=== PATIENT | male | born 1935 | race Caucasian/White ===

== ENCOUNTER 2021-01-19 10:14 | Day surgery (SDC) | payer OTHER ==
[~2021-01-19] VITALS: Ht 170.2 cm; Wt 85.5 kg
[~2021-01-19 10:14] MED LIST: ASPI81CH PO; ASPI81EC PO; FISH OIL 1,2001 EAC7 PO; HYDACE5 PO; LEVSOD112 PO; LEVSOD75 PO; LOSA50 PO; NIAC500 PO; Ocuvite Preser1 EACH PO; QUIN10 PO; Ranitidine HCl150 M1 PO
--- NOTE | 2021-01-19 11:33 | NUR ---
01/19/21 1133 LORETA MORA PT UPDATED THAT PREVIOUS CASE IS RUNNING LONG. PT COMFORTABLE AND DENIES NEEDING ANYTHING AT THIS TIME.
== END 2021-01-19 13:00 | disposition home or self-care (01) ==
LOC: ORSCSDS 10:14
PROVIDERS: Student in an Organized Health Care Education/Training Program
PROC: 0DBK8ZX Excision of Ascending Colon, Via Natural or Artificial Opening Endoscopic, Diagnostic (ICD-10-PCS; principal; 2021-01-19 11:30)
PROC: 0DBN8ZX Excision of Sigmoid Colon, Via Natural or Artificial Opening Endoscopic, Diagnostic (ICD-10-PCS; principal; 2021-01-19 11:30)
DX: Z12.11 Encounter for screening for malignant neoplasm of colon (principal); D12.2 Benign neoplasm of ascending colon; D12.5 Benign neoplasm of sigmoid colon; K57.30 Diverticulosis of large intestine without perforation or abscess without bleeding; K64.8 Other hemorrhoids; Z86.010 Personal history of colon polyps; I10 Essential (primary) hypertension; E03.9 Hypothyroidism, unspecified; Z79.899 Other long term (current) drug therapy
CPT/HCPCS: 88305; J2704; J7120

== ENCOUNTER 2021-05-29 13:42 | Emergency (ER) | payer OTHER ==
[~2021-05-29] VITALS: Ht 172.7 cm; Wt 85.7 kg
[2021-05-29] MEDS ORDERED: Aspir 8181 MG PO (13:58)
[2021-05-29 14:34] LABS: BASOPHILS ABSOLUTE AUTO 0.06 K/mm3 (0.00-0.23); BASOPHILS PERCENT AUTO 1 % (0-2); EOSINOPHILS ABSOLUTE AUTO 0.08 K/mm3 (0.00-0.68); EOSINOPHILS PERCENT AUTO 1 % (0-6); Hematocrit 39.8 % (37.0-53.0); Hemoglobin 13.8 g/dL (13.5-17.5); IMMATURE GRAN ABSOLUTE AUTO 0.01 K/mm3 (0.00-0.10); IMMATURE GRAN PERCENT AUTO 0 % (0-1); LYMPHOCYTES ABSOLUTE AUTO 2.94 K/mm3 (0.84-5.20); LYMPHOCYTES PERCENT AUTO 46 % (21-46); MONOCYTES ABSOLUTE AUTO 0.43 K/mm3 (0.16-1.47); MONOCYTES PERCENT AUTO 7 % (4-13); Mean Corpuscular HGB 34.5 pg (26.0-34.0); Mean Corpuscular HGB Conc 34.7 g/dL (31.5-36.5); Mean Corpuscular Volume 100 fL (80-100); Mean Platelet Volume 11.7 fL (9.1-12.4); NEUTROPHILS ABSOLUTE AUTO 2.92 K/mm3 (1.96-9.15); NEUTROPHILS PERCENT AUTO 45 % (41-73); Platelet Count 152 K/mm3 (150-400); RDW Coefficient Variation 11.5 % (11.7-14.2); RDW Standard Deviation 42.1 fL (35.1-46.3); White Blood Cell Count 6.44 K/mm3 (4.00-11.30)
[2021-05-29 14:56] LABS: Alanine Aminotransfer (ALT/SGP 67 U/L (12-78); Albumin, Blood 3.6 g/dL (3.4-5.0); Albumin/Globulin Ratio 0.8 (0.8-1.8); Alk Phos 63 U/L (50-136); Anion Gap 6 mmol/L (6-16); Aspartate Aminotrans (AST/SGOT 43 U/L (12-37); Bilirubin, Total 0.5 mg/dL (0.1-1.0); Blood Urea Nitrogen 15 mg/dL (8-24); Bun/Creatinine Ratio 13.2 (12.0-20.0); CO2, Blood 26 mmol/L (21-32); Calcium, Blood 8.7 mg/dL (8.5-10.1); Chloride, Blood 108 mmol/L (98-108); Creatinine, Blood 1.14 mg/dL (0.60-1.20); Globulin, Blood 4.3 g/dL (2.2-4.0); Glomerular Filtration Rate >60 (60-); Glucose, Blood 138 mg/dL (70-99); Sodium, Blood 140 mmol/L (136-145); Total Protein, Blood 7.9 g/dL (6.4-8.2); Troponin I <0.015 ng/mL (0.000-0.040)
== END 2021-05-29 16:25 | disposition home or self-care (01) ==
LOC: ER 13:42
PROVIDERS: Emergency Medicine
DX: R07.9 Chest pain, unspecified (principal); I10 Essential (primary) hypertension; E03.9 Hypothyroidism, unspecified; Z88.8 Allergy status to other drugs, medicaments and biological substances; Z79.82 Long term (current) use of aspirin; Z79.899 Other long term (current) drug therapy
CPT/HCPCS: 36415; 71045; 80053; 83880; 84484; 85025; 93005; 93010; 99284-25

== ENCOUNTER 2021-06-12 23:19 | Observation (INO) | payer OTHER ==
[~2021-06-12] VITALS: Ht 172.7 cm; Wt 86.2 kg
[~2021-06-12 23:19] MED LIST changes: +Aspir 8181 MG PO
[2021-06-12 23:39] LABS: BASOPHILS ABSOLUTE AUTO 0.04 K/mm3 (0.00-0.23); BASOPHILS PERCENT AUTO 0 % (0-2); EOSINOPHILS ABSOLUTE AUTO 0.03 K/mm3 (0.00-0.68); EOSINOPHILS PERCENT AUTO 0 % (0-6); Hematocrit 42.1 % (37.0-53.0); Hemoglobin 14.5 g/dL (13.5-17.5); IMMATURE GRAN ABSOLUTE AUTO 0.03 K/mm3 (0.00-0.10); IMMATURE GRAN PERCENT AUTO 0 % (0-1); LYMPHOCYTES ABSOLUTE AUTO 3.05 K/mm3 (0.84-5.20); LYMPHOCYTES PERCENT AUTO 31 % (21-46); MONOCYTES PERCENT AUTO 6 % (4-13); Mean Corpuscular HGB 34.4 pg (26.0-34.0); Mean Corpuscular HGB Conc 34.4 g/dL (31.5-36.5); Mean Corpuscular Volume 100 fL (80-100); Mean Platelet Volume 11.6 fL (9.1-12.4); NEUTROPHILS ABSOLUTE AUTO 6.07 K/mm3 (1.96-9.15); NEUTROPHILS PERCENT AUTO 62 % (41-73); Platelet Count 164 K/mm3 (150-400); RDW Coefficient Variation 11.4 % (11.7-14.2); RDW Standard Deviation 41.7 fL (35.1-46.3); Red Blood Cell Count 4.22 M/mm3 (4.30-5.90); White Blood Cell Count 9.82 K/mm3 (4.00-11.30)
[2021-06-12 23:59] LABS: Albumin/Globulin Ratio 0.9 (0.8-1.8); Bilirubin, Total 0.5 mg/dL (0.1-1.0); Bun/Creatinine Ratio 17.4 (12.0-20.0); Calcium, Blood 9.2 mg/dL (8.5-10.1); Creatinine, Blood 1.55 mg/dL (0.60-1.20); Globulin, Blood 4.3 g/dL (2.2-4.0); Potassium, Blood 4.1 mmol/L (3.5-5.5); Total Protein, Blood 8.3 g/dL (6.4-8.2); Troponin I 0.018 ng/mL (0.000-0.040)
[2021-06-13] MEDS ORDERED: NITROGLYCERIN0.4 M3 SL (03:08)
[2021-06-13] MEDS ORDERED: LOSA25 PO (03:08)
[2021-06-13] MEDS ORDERED: PROBIOTIC1 EA13 PO (05:24)
[2021-06-13] MEDS ORDERED: [UNRECOGNIZED DRUG - OTHER] PO (05:25)
--- NOTE | 2021-06-13 06:17 | NUR ---
PATIENT REPORTS CHEST PAIN; THEN REPORTS IT MAY BE DUE TO HIS THROAT AND MOUTH HURTING; REFUSED NITRO SL AT THIS TIME.
--- NOTE | 2021-06-13 06:45 | NUR ---
ASSUMED CARE OF PATIENT AT APPROXIMATELY 0510 FROM ED RN KAILEE Mohamud PATIENT ARRIVED TO ER VIA STRETCHER; TRANSFER SLOWLY FROM ED TO PCU STRETCHER; HEPARING INFUSING AT THAT TIME. PATIENT DENIES CP/PRESSURE, NUMBNESS, TINGLING, DIZZINESS AND NAUSEA. ADMISSION COMPLETE. PATIENT HAS BALOON IN NOSE FOR BLOODY NOSE SINCE MONDAY AND REPORTS BP HAS BEEN ELEVATED SINCE THEN. DR. CORONEL BEDSIDE SHORTLY AFTER 6 AM; ORDERS TO HOLD ON HEPARIN UNLESS PATIENT HAS SEVERE CP. SEE PREVIOUS NOTE ABOUT PATIENT'S REPORT OF CP AND REFUSED NITRO; PATIENT REPORTS THROAT LOZENGE IS WHAT HE NEEDS; ONCE PAIN IN THROAT FROM BALOON AND MOUTH PAIN IMPROVES HE WILL FEEL BETTER; LATER REFUSED CHEST PAIN AND IMMEDIATELY REPORTED FEELING BETTER AFTER GIVEN THROAT LOZENGE; REFUSED IV FENTANYL FOR THROAT PAIN. PATIENT NPO AT THIS TIME FOR POSSIBLE ANGIO; NS AT 75ML INFUSING PER ORDER. ONE ASSIST OUT OF BED. NSR ON TELE; OXYGEN SATURATION ABOVE 90% ON ROOM AIR.
[2021-06-13 08:53] LABS: BASOPHILS ABSOLUTE AUTO 0.05 K/mm3 (0.00-0.23); BASOPHILS PERCENT AUTO 1 % (0-2); EOSINOPHILS PERCENT AUTO 0 % (0-6); Hematocrit 41.6 % (37.0-53.0); Hemoglobin 14.3 g/dL (13.5-17.5); IMMATURE GRAN ABSOLUTE AUTO 0.05 K/mm3 (0.00-0.10); IMMATURE GRAN PERCENT AUTO 1 % (0-1); LYMPHOCYTES ABSOLUTE AUTO 2.23 K/mm3 (0.84-5.20); LYMPHOCYTES PERCENT AUTO 21 % (21-46); MONOCYTES ABSOLUTE AUTO 0.85 K/mm3 (0.16-1.47); MONOCYTES PERCENT AUTO 8 % (4-13); Mean Corpuscular HGB Conc 34.4 g/dL (31.5-36.5); Mean Corpuscular Volume 99 fL (80-100); Mean Platelet Volume 11.7 fL (9.1-12.4); NEUTROPHILS ABSOLUTE AUTO 7.64 K/mm3 (1.96-9.15); NEUTROPHILS PERCENT AUTO 71 % (41-73); Platelet Count 146 K/mm3 (150-400); RDW Coefficient Variation 11.4 % (11.7-14.2); RDW Standard Deviation 41.2 fL (35.1-46.3); Red Blood Cell Count 4.21 M/mm3 (4.30-5.90); White Blood Cell Count 10.82 K/mm3 (4.00-11.30)
[2021-06-13 09:10] LABS: Alanine Aminotransfer (ALT/SGP 45 U/L (12-78); Albumin, Blood 3.8 g/dL (3.4-5.0); Albumin/Globulin Ratio 0.9 (0.8-1.8); Alk Phos 44 U/L (50-136); Anion Gap 4 mmol/L (6-16); Aspartate Aminotrans (AST/SGOT 24 U/L (12-37); Bilirubin, Total 0.7 mg/dL (0.1-1.0); Blood Urea Nitrogen 22 mg/dL (8-24); Bun/Creatinine Ratio 19.8 (12.0-20.0); CO2, Blood 28 mmol/L (21-32); CPK Creatine Kinase 77 U/L (39-308); Chloride, Blood 106 mmol/L (98-108); Creatinine, Blood 1.11 mg/dL (0.60-1.20); Globulin, Blood 4.2 g/dL (2.2-4.0); Glomerular Filtration Rate >60 (60-); Glucose, Blood 128 mg/dL (70-99); Potassium, Blood 3.8 mmol/L (3.5-5.5); Sodium, Blood 138 mmol/L (136-145); Troponin I 0.199 ng/mL (0.000-0.040)
--- NOTE | 2021-06-13 17:57 | NUR ---
REPORT TO JACK CRUMP FOR [facility] TRANSFER. TRANSFERRED WITH TR BAND IN PLACE ON RIGHT FULLY DEFLATED, ARM BOARD IN PLACE. CAP REFILL <3, NO EXTREMETY PAIN. RADIAL PULSE PALPABLE. NO BLEEDING OR BRUISING. ANGIOSEAL TO RIGHT GROIN. NON SWOLLEN, NO BRUISING OR BLEEDING. A/A/OX4 AT TIME OF TRANSFER. HEPARIN INFUSING AT 13UNIT/KG PER ORDERS.
== END 2021-06-13 16:59 | disposition short-term general hospital (02) ==
LOC: ER 23:19 → PCU 23:20 → ER 06-13 03:37 → PCU 06-13 03:37
PROVIDERS: Student in an Organized Health Care Education/Training Program; ADMIT Internal Medicine
DX: I21.4 Non-ST elevation (NSTEMI) myocardial infarction (principal); I25.10 Atherosclerotic heart disease of native coronary artery without angina pectoris; Z95.5 Presence of coronary angioplasty implant and graft; I25.2 Old myocardial infarction; I16.0 Hypertensive urgency; I10 Essential (primary) hypertension; E03.9 Hypothyroidism, unspecified; E78.5 Hyperlipidemia, unspecified; R04.0 Epistaxis; Z88.8 Allergy status to other drugs, medicaments and biological substances; Z85.46 Personal history of malignant neoplasm of prostate
CPT/HCPCS: 36415; 71045; 80053; 82550; 84484; 85025; 85730; 93005; 93010; 93306; 93458; 96365; 96375; 96376; 99152; 99153; 99285-25; A9270; C1760; C1769; C1894; G0378; J0360; J1644; J2250; J3010; J7030; J7050; Q9967

== ENCOUNTER 2023-04-18 12:40 | Day surgery (SDC) | payer OTHER ==
[~2023-04-18] VITALS: Ht 172.7 cm; Wt 84.8 kg
[~2023-04-18 12:40] MED LIST changes: +LOSA25 PO; +NITROGLYCERIN0.4 M3 SL; +PROBIOTIC1 EA13 PO; +[UNRECOGNIZED DRUG - OTHER] PO
[2023-04-18] MEDS ORDERED: B COMPLEX FORM0.4 MG (13:02)
[2023-04-18] MEDS ORDERED: FAMO10 (13:03)
[2023-04-18] MEDS ORDERED: Bisoprolol Fumar5 MG (13:03)
[2023-04-18] MEDS ORDERED: POTASSIUM99 M3 (13:03)
[2023-04-18] MEDS ORDERED: OCUVITE BLUE L1 EACH (13:03)
[2023-04-18] MEDS ORDERED: Crestor40 MG (13:04)
[2023-04-18 14:41] VITALS: BP 128/83
== END 2023-04-18 14:30 | disposition home or self-care (01) ==
LOC: ORSCSDS 12:40
PROVIDERS: Student in an Organized Health Care Education/Training Program
PROC: 0DBK8ZX Excision of Ascending Colon, Via Natural or Artificial Opening Endoscopic, Diagnostic (ICD-10-PCS; principal; 2023-04-18 14:00)
PROC: 0DBM8ZX Excision of Descending Colon, Via Natural or Artificial Opening Endoscopic, Diagnostic (ICD-10-PCS; principal; 2023-04-18 14:00)
PROC: 0DBL8ZX Excision of Transverse Colon, Via Natural or Artificial Opening Endoscopic, Diagnostic (ICD-10-PCS; principal; 2023-04-18 14:00)
DX: Z12.11 Encounter for screening for malignant neoplasm of colon (principal); Z86.010 Personal history of colon polyps; D12.3 Benign neoplasm of transverse colon; D12.2 Benign neoplasm of ascending colon; D12.4 Benign neoplasm of descending colon; K57.30 Diverticulosis of large intestine without perforation or abscess without bleeding; K64.8 Other hemorrhoids; I10 Essential (primary) hypertension; E03.9 Hypothyroidism, unspecified; Z79.899 Other long term (current) drug therapy
CPT/HCPCS: 88305; J2704; J7120

== ENCOUNTER 2023-05-12 15:31 | Emergency (ER) | payer OTHER ==
[~2023-05-12] VITALS: Ht 170.2 cm; Wt 83.9 kg
[~2023-05-12 15:31] MED LIST changes: +B COMPLEX FORM0.4 MG; +Bisoprolol Fumar5 MG; +Crestor40 MG; +FAMO10; +OCUVITE BLUE L1 EACH; +POTASSIUM99 M3
[2023-05-12 15:38] VITALS: BP 140/91
== END 2023-05-12 16:58 | disposition home or self-care (01) ==
LOC: ER 15:31
DX: R10.30 Lower abdominal pain, unspecified (principal); I10 Essential (primary) hypertension; E03.9 Hypothyroidism, unspecified; Z79.82 Long term (current) use of aspirin; Z79.899 Other long term (current) drug therapy; Z79.890 Hormone replacement therapy; Z88.8 Allergy status to other drugs, medicaments and biological substances
CPT/HCPCS: 74018; 76857; 99284-25

== ENCOUNTER → 2023-11-29 | Outpatient (CLI) | payer OTHER | LOC: LAB SHORT 10:19 → LAB 10:19 | DX: N39.0 Urinary tract infection, site not specified (principal) | CPT/HCPCS: 87077; 87086; 87186 ==

== ENCOUNTER → 2024-09-03 | Outpatient (CLI) | payer OTHER ==
[~2024-09-03] MED LIST changes: +AMOCLA500 PO; -Crestor40 MG; +Crestor40 MG PO; -FAMO10; +FAMO10 PO; +METO25 PO; +MULTI-VITAMIN1 EAC2 PO; +VITAMIN D350 MC3 PO
== END | disposition home or self-care (01) ==
LOC: LAB SHORT 11:27 → LAB 11:27
DX: N39.0 Urinary tract infection, site not specified (principal)
CPT/HCPCS: 87077; 87086; 87186

== ENCOUNTER → 2025-08-06 | Outpatient (CLI) | payer OTHER | LOC: LAB 10:52 → LAB SHORT 10:52 | DX: R30.0 Dysuria (principal) | CPT/HCPCS: 87077; 87086; 87186 ==

== ENCOUNTER → 2025-08-25 | Outpatient (CLI) | payer OTHER | LOC: LAB SHORT 11:20 → LAB 11:20 | DX: N39.0 Urinary tract infection, site not specified (principal) | CPT/HCPCS: 87077; 87086; 87186 ==

== ENCOUNTER → 2025-09-02 | Outpatient (CLI) | payer OTHER ==
[2025-09-02 15:31] LABS: Stool Occult Bld Immuno 1 Negative (NEGATIVE)
== END ==
LOC: LAB SHORT 11:20 → LAB 11:20
PROVIDERS: Family Medicine
DX: Z12.11 Encounter for screening for malignant neoplasm of colon (principal)
CPT/HCPCS: G0328

== ENCOUNTER → 2025-09-15 | Outpatient (CLI) | payer OTHER | LOC: LAB 13:25 → LAB SHORT 13:25 | DX: N39.0 Urinary tract infection, site not specified (principal) | CPT/HCPCS: 87077; 87086; 87186 ==